=== PATIENT | female | born 1955 | race African-American/Black ===

== ENCOUNTER → 2017-12-13 | Outpatient (CLI) | payer BC | LOC: M.RAD 11:15 | DX: Z12.31 Encounter for screening mammogram for malignant neoplasm of breast (principal) ==

== ENCOUNTER → 2020-06-10 | Outpatient (CLI) | payer OTHER | LOC: M.RAD 09:46 | PROVIDERS: ATTEND Family Medicine | DX: Z12.31 Encounter for screening mammogram for malignant neoplasm of breast (principal) ==

== ENCOUNTER 2020-08-09 05:36 | Emergency (ER) | payer OTHER ==
[~2020-08-09] VITALS: Ht 170.1 cm; Wt 96.2 kg
[2020-08-09 06:56] LABS: ABSOLUTE BASOPHILS 0.1 thou/uL (0.0-0.2); ABSOLUTE EOSINOPHILS 0.3 thou/uL (0.0-0.7); ABSOLUTE LYMPHOCYTES 2.5 thou/uL (0.8-5.3); ABSOLUTE MONOCYTES 0.6 thou/uL (0.0-1.2); ABSOLUTE NEUTROPHILS 2.9 thou/uL (1.6-8.1); BASOPHILS 1.4 %; HEMATOCRIT 38.7 % (37.0-47.0); LYMPHOCYTES 38.9 %; MCH 31.6 pg (26.0-34.0); MCHC 33.6 g/dL (28.0-37.0); MCV 93.8 fL (80.0-100.0); MPV 7.5 fl. (7.2-11.1); NUCLEATED RBCS 0 /100WBC; PLATELET COUNT* 325 thou/uL (150-400); POLYS 45.7 %; RBC 4.12 mil/uL (4.20-5.00); RDW-CV 13.3 % (10.5-14.5); WBC 6.3 thou/uL (4.0-11.0)
[2020-08-09 07:12] LABS: POTASSIUM 3.9 mmol/L (3.5-5.1); PROTIME 10.9 Seconds (9.20-11.50)
[2020-08-09 07:22] LABS: ALBUMIN 3.7 g/dL (3.4-5.0); MAGNESIUM 2.2 mg/dL (1.8-2.4); TOTAL BILIRUBIN 0.2 mg/dL (<0.1-1.0); TOTAL PROTEIN 6.8 g/dL (6.4-8.2)
[2020-08-09 09:45] VITALS: BP 153/77
--- NOTE | 2020-08-10 08:56 | EKG ---
[place] [address] ELECTROCARDIOGRAM REPORT Name: SUÁREZOUMOU Hernandez Room: [facility]#: [id number] Admission: 08/09/20 Attend Phys: Discharge: 08/09/20 Date of : 53 Date of Service: 08/09/20 0544 Report #: [id number] THIS REPORT FOR: //name// [facility] ED Test Date: 2020-08-09 Test Time: 05:44:32 Pat Name: OUMOU SUÁREZ Department: Room: Gender: Yarn Sorter: : 1955 Requested By: Leona Calderon Order Number: [id number] MD: Mickey Fowler Measurements Intervals [place] Rate: 85 P: 27 MO: 183 QRS: 24 QRSD: 85 T: 39 QT: 380 QTc: 452 Interpretive Statements Sinus rhythm Minimal ST depression, anterolateral leads No previous ECG available for comparison Electronically Signed On 08-10-2020 8:56:20 [employer]ODUCT [employer] by Mickey Fowler [email or web address] <ELECTRONICALLY SIGNED> By: Mickey Fowler MD, [facility] 08/10/20 0856 Mickey Fowler MD, FACC /EPI
== END 2020-08-09 09:45 | disposition home or self-care (01) ==
LOC: M.ERS 05:36
PROVIDERS: Emergency Medicine
DX: R07.89 Other chest pain (principal); R09.89 Other specified symptoms and signs involving the circulatory and respiratory systems; E11.9 Type 2 diabetes mellitus without complications; I10 Essential (primary) hypertension; K21.9 Gastro-esophageal reflux disease without esophagitis; E78.00 Pure hypercholesterolemia, unspecified; Z91.041 Radiographic dye allergy status